=== PATIENT | female | born 1955 | race Caucasian/White ===

== ENCOUNTER 2022-03-11 09:14 | Outpatient (CLI) | payer MEDICARE ==
[~2022-03-11 09:14] MED LIST: Magnevist 469MG/ML 20 ML VIAL ONE
== END 2022-03-11 09:15 | disposition home or self-care (01) ==
LOC: CSHMRI 09:14
PROVIDERS: ATTEND Internal Medicine Gastroenterology
DX: R94.8 Abnormal results of function studies of other organs and systems (principal); C20 Malignant neoplasm of rectum; F03.90 Unspecified dementia, unspecified severity, without behavioral disturbance, psychotic disturbance, mood disturbance, and anxiety
CPT/HCPCS: 72197; 82565